=== PATIENT | female | born 2000 | race Caucasian/White ===

== ENCOUNTER 2021-07-01 20:40 | Emergency (ER) | payer OTHER ==
[~2021-07-01] VITALS: Ht 162.6 cm; Wt 71.8 kg
[2021-07-01 20:52] VITALS: BP 116/65
--- NOTE | 2021-07-01 20:55 | PHYS DOC ---
General Adult EDM: Chief Complaint: FOOT INJURY PAIN HPI: HPI: Patient is a 21-year-old female who presents to the emergency department for left foot and great toe pain. Patient reports that she was walking a few days ago and kicked a step. She rates her pain 8 out of 10 only with palpation. She denies any pain at rest. No treatment prior to arrival. Denies any decreased range of motion or decreased sensation to her extremity. She has been able to bear weight and ambulate. (GLADIS ROSALES APRN) Review of Systems: Review of Systems: Musculoskeletal: See HPI Integument: See HPI Neurologic: See HPI (GLADIS ROSALES APRN) Allergies: Allergies: Allergies Coded Allergies Type Severity Reaction Last Updated Verified No Known Drug Allergies 07/01/21 No (GLADIS ROSALES APRN) Physical Exam: PE: Constitutional: Well developed, well nourished, no acute distress, non-toxic appearance. [] HENT: Normocephalic, atraumatic, bilateral external ears normal, oropharynx moist, no oral exudates, nose normal. [] Eyes: PERRL, EOMI, conjunctiva normal, no discharge. [] Neck: Normal range of motion, no tenderness, supple, no stridor. [] Cardiovascular:Heart rate regular rhythm, no murmur [] Lungs & Thorax: Bilateral breath sounds clear to auscultation [] Abdomen: Bowel sounds normal, soft, no tenderness, no masses, no pulsatile masses. [] Skin: Warm, dry, no erythema, no rash. [] Back: No tenderness, normal range of motion Extremities: No tenderness, no cyanosis, no clubbing, ROM intact, no edema. [] Left foot: Ecchymosis and swelling noted to medial aspect of left foot proximal to great toe, range of motion intact, neuro intact, no obvious deformity, no open wounds Neurologic: Alert and oriented X 3, normal motor function, normal sensory function, no focal deficits noted. [] Psychologic: Affect normal, judgement normal, mood normal. [] (GLADIS ROSALES APRN) EKG: EKG: [] (GLADIS ROSALES APRN) Radiology/Procedures: Radiology/Procedures: [] (GLADIS ROSALES APRN) Heart Score: C/O Chest Pain: N/A Risk Factors: Risk Factors: DM, Current or recent (<one month) smoker, HTN, HLP, family history of CAD, obesity. Risk Scores: Score 0 - 3: 2.5% MACE over next 6 weeks - Discharge Home Score 4 - 6: 20.3% MACE over next 6 weeks - Admit for Clinical Observation Score 7 - 10: 72.7% MACE over next 6 weeks - Early Invasive Strategies (GLADIS ROSALES APRN) Course & Med Decision Making: Course & Med Decision Making Pertinent Labs and Imaging studies reviewed. (See chart for details) [] Patient presents to the emergency department for left foot great toe pain. An x-ray is performed that showed no acute findings as read by this [employer]IPPER and supervising physician.. Patient advised to take anti-inflammatory medications and apply ice. I discussed with patient all findings and diagnostic testing as well as the need to follow-up with PCP for further evaluation and treatment or return to the ER if any new or worsening symptoms. Strict return precautions were also discussed at length. Patient voiced understanding and agreement with the plan. Patient is hemodynamically stable at the time of disposition. (GLADIS ROSALES APRN) Dragon Disclaimer: Dragon Disclaimer: This electronic medical record was generated, in whole or in part, using a voice recognition dictation system. (GLADIS ROSALES APRN) Departure Departure: Impression: Primary Impression: Foot contusion Qualified Codes: S90.32XA - Contusion of left foot, initial encounter Disposition: HOME / SELF CARE / HOMELESS Condition: GOOD Referrals: TRAM GREGG DO, [facility] (PCP) Patient Instructions: Foot Contusion Additional Instructions: You are seen in the emergency department today for foot pain and injury. An x- ray was performed that did not show any acute fracture. Please take anti- inflammatory medications like Tylenol and ibuprofen at home for your pain. You can also apply ice and elevate for swelling. Follow-up with your primary care provider on Sunday regarding your ER visit. Return to the emergency department if you develop any new injuries, worsening of your pain, inability to bear weight or walk, decreased range of motion or decreased sensation in your extremity. Attending Signature Attending Signature I have participated in the care of this patient and I have reviewed and agree with all pertinent clinical information above including history, exam, and recommendations. (RHONDA GALAN MD) Dragon Disclaimer This chart was dictated in whole or in part using Voice Recognition software in a busy, high-work load, and often noisy Emergency Department environment. It may contain unintended and wholly unrecognized errors or omissions. (RHONDA GALAN MD) GLADIS ROSALES INSTRUCTIONAL SPECIALIST Jul 01, 2021 20:55 RHONDA GALAN MD Jul 04, 2021 20:26
--- NOTE | 2021-07-01 21:30 | RAD ---
EXAMINATION: Left foot radiograph. VIEWS: 3 COMPARISON: None INDICATION:21 years, Female, left foot injury, pain. FINDINGS: No acute fracture, dislocation or subluxation. No bone erosion or periosteal reaction. No soft tissue swelling or joint effusion. IMPRESSION: No acute osseous process. Electronically signed by: Alberto Morris MD (07/01/2021 9:27 PM) [facility]
== END 2021-07-01 21:14 | disposition home or self-care (01) ==
LOC: ER 20:40
DX: S90.32XA Contusion of left foot, initial encounter (principal); W22.8XXA Striking against or struck by other objects, initial encounter; Y93.01 Activity, walking, marching and hiking; Y92.89 Other specified places as the place of occurrence of the external cause; Y99.8 Other external cause status
CPT/HCPCS: 73630; 99283